=== PATIENT | female | born 2000 | race African-American/Black ===

== ENCOUNTER 2024-01-18 13:37 | Emergency (ER) | payer SELFPAY ==
[~2024-01-18] VITALS: Ht 167.6 cm; Wt 59.0 kg
[2024-01-18 13:44] VITALS: TEMP 97.3; O2SAT 99
[2024-01-18 14:25] LABS: HEMATOCRIT. 38.5 % (36.0-48.0); HEMOGLOBIN. 12.7 g/dL (12.0-16.0); MEAN CORPUSCULAR HEMOGLOBIN 28.2 pg (28.0-32.0); MEAN CORPUSCULAR VOLUME 85.4 fL (81.0-99.0); MEAN PLATELET VOLUME 9.2 fl (7.4-10.4); PLATELET 231 x1000/uL (130-400); RED CELL DISTRIBUTION WIDTH 13.7 % (11.6-14.6); WHITE BLOOD COUNT 5.9 x1000/uL (4.5-11.0)
[2024-01-18] MEDS: SODIUM CHLORIDE 0.9% 1,000 ML IV ONE (14:25)
[2024-01-18 14:31] LABS: CARBON DIOXIDE 22 mEq/L (21-32); CHLORIDE 107 mEq/L (98-107); POTASSIUM 3.5 mEq/L (3.5-5.1); SODIUM 136 mEq/L (136-145)
[2024-01-18 14:32] LABS: CALCIUM 9.4 mg/dL (8.7-10.4)
[2024-01-18 14:33] LABS: INR 1.1; PROTHROMBIN TIME 12.1 sec (9.6-11.0)
[2024-01-18 14:36] LABS: CREATININE 0.6 mg/dL (0.6-1.0); GLUCOSE 85 mg/dL (70-105)
[2024-01-18 14:37] LABS: UREA NITROGEN BLOOD 6 mg/dL (9-23)
[2024-01-18 14:41] LABS: DIFFERENTIAL COMMENT 1
[2024-01-18 14:49] LABS: HCG SCREEN NEGATIVE
[2024-01-18] MEDS ORDERED: METR-167 MT (15:34)
[2024-01-18] MEDS ORDERED: CIPR-263 MT (15:34)
[2024-01-18 15:46] VITALS: BP 106/66; PULSE 90; RESP 14
[2024-01-18] MEDS: KETOROLAC 30MG/ML VIAL IV ONE (15:46)
[2024-01-18 16:01] LABS: PLATELET ESTIMATE NORMAL
== END 2024-01-18 16:10 | disposition home or self-care (01) ==
LOC: ER 13:37
DX: R19.7 Diarrhea, unspecified (principal); R53.1 Weakness; F41.9 Anxiety disorder, unspecified
CPT/HCPCS: 80048; 84703; 83690; 85025; 85610; 36415; 96361; 96374; 99283; J1885; J7030; Z7610